=== PATIENT | male | born 1965 | race African-American/Black ===

== ENCOUNTER 2017-12-28 11:14 | Emergency (ER) | payer MEDICAID ==
[~2017-12-28] VITALS: Ht 182.9 cm; Wt 92.1 kg
[2017-12-28] MEDS ORDERED: AMLODIPINE BESY10 MG ORAL (11:21)
[2017-12-28] MEDS ORDERED: HYDROCHLOROTHIA25 MG ORAL (11:21)
[2017-12-28 12:06] VITALS: BP 157/85
[2017-12-28 12:12] VITALS: BP 157/85
--- NOTE | 2017-12-29 15:37 | Emergency Room Report ---
History of Present Illness General Chief Complaint: Eye Problems Source: Patient Present Illness HPI 52-year-old male presents ED for evaluation. Patient complaining of blurriness and redness to his left eye. Started 2 days ago after mechanical trip and fall. Landed on his head. Denies LOC. States there is been redness to his left eye. States there is blurry vision. Denies photophobia. Denies headache , nausea or vomiting. Denies neck pain. Denies any other injuries. No other aggravating relieving factors. Denies any other associated symptoms Allergies: Coded Allergies: No Known Allergies (Unverified , 12/28/17) Patient History Past Medical History: HTN Past Surgical History: none Pertinent Family History: none Social History: Denies: smoking, alcohol use, drug use Immunizations: UTD Reviewed Nursing Documentation: PMH: Agreed; PSxH: Agreed Nursing Documentation-PMH Hx Hypertension: Yes Review of Systems All Other Systems: negative except mentioned in HPI Physical Exam Vital Signs Date Time Temp Pulse Resp B/P (MAP) Pulse Ox O2 Delivery O2 Flow Rate FiO2 12/28/17 11:18 97.6 52 18 157/85 99 Room Air 97.5 Sp02 EP Interpretation: reviewed, normal General Appearance: no apparent distress, alert, GCS 15, non-toxic Head: normocephalic, atraumatic Eyes: right eye normal inspection; left eye visual acuity - blurry vision L eye , left eye Scleral Injection; bilateral eye PERRL, bilateral eye EOMI ENT: hearing grossly normal, normal pharynx, no angioedema, normal voice Neck: full range of motion, supple/symm/no masses Respiratory: chest non-tender, lungs clear, normal breath sounds, speaking full sentences Cardiovascular #1: regular rate, rhythm, no edema Cardiovascular #2: 2+ carotid (R), 2+ carotid (L), 2+ radial (R), 2+ radial (L) , 2+ dorsalis pedis (R), 2+ dorsalis pedis (L) Gastrointestinal: normal bowel sounds, non tender, soft, non-distended, no guarding, no rebound Rectal: deferred Genitourinary: normal inspection, no CVA tenderness Musculoskeletal: back normal, gait/station normal, normal range of motion, non- tender Neurologic: alert, oriented x3, responsive, motor strength/tone normal, sensory intact, speech normal Psychiatric: judgement/insight normal, memory normal, mood/affect normal, no suicidal/homicidal ideation Reflexes: 3+ bicep (R), 3+ bicep (L), 3+ tricep (R), 3+ tricep (L), 3+ knee (R) , 3+ knee (L) Skin: normal color, no rash, warm/dry, well hydrated Lymphatic: no adenopathy Medical Decision Making Diagnostic Impression: Primary Impression: Eye problem ER Course Hospital Course 52 yo M presents to ED c/o L eye redness, blurry vision s/p fall Differential diagnoses include: conjunctivitis, traumatic iritis, foreign body, corneal abrasion Clinical course Patient placed on stretcher. After initial history and physical I ordered CT head. Plan was to perform with lamp exam using tetracaine floor seen Patient states he needs to leave. States that he has a pre-existing engagement. Understands the risks of leaving. Patient has competency to make his own decisions. Signed AMA form. I will provide him with ophthalmology referral Diagnosis - eye problem patient left AMA Last Vital Signs Date Time Temp Pulse Resp B/P (MAP) Pulse Ox O2 Delivery O2 Flow Rate FiO2 12/28/17 12:12 97.5 60 18 157/85 99 Room Air 97.5 Status: unchanged Disposition: AGAINST MEDICAL ADVICE Condition: Stable Referrals: [facility],REFERRING (PCP) Brayden Roman M.D., MD Patient Instructions: Diplopia Santo Mora MD Dec 29, 2017 15:37
== END 2017-12-28 12:15 | disposition left against medical advice (07) ==
LOC: EMR 11:58
DX: H53.8 Other visual disturbances (principal); H57.9 Unspecified disorder of eye and adnexa; I10 Essential (primary) hypertension; Z53.21 Procedure and treatment not carried out due to patient leaving prior to being seen by health care provider
CPT/HCPCS: 99283